=== PATIENT | female | born 1980 | race African-American/Black ===

== ENCOUNTER 2017-10-12 20:49 | Emergency (ER) | payer SELFPAY ==
[~2017-10-12] VITALS: Ht 162.6 cm; Wt 88.6 kg
[~2017-10-12 20:49] MED LIST: DOXYCYC MONO100 M2 PO; DOXYCYCL HYC100 MG PO; LISINOPRIL10 MG PO
[2017-10-12] MEDS ORDERED: METFORMIN HCL750 MG PO (21:13)
[2017-10-12] MEDS ORDERED: STERAPRED5 MG PO (21:34)
[2017-10-12 21:40] VITALS: BP 166/84
== END 2017-10-12 21:40 | disposition home or self-care (01) | DRG 916 ==
LOC: ED 20:49
DX: T78.01XA Anaphylactic reaction due to peanuts, initial encounter (principal); R21 Rash and other nonspecific skin eruption